=== PATIENT | female | born 1985 | race Caucasian/White ===

== ENCOUNTER 2022-12-02 16:38 | Emergency (ER) | payer SELFPAY ==
[2022-12-02 17:08] VITALS: PULSE 84; RESP 16; TEMP 36.7; O2SAT 98; BMI 25.0
--- NOTE | 2022-12-02 18:09 | ED_ITS ---
HPI - General Adult General: Chief complaint: General Medical Stated complaint: right arm pain, skin irritation, pain all over Time Seen by Provider: 12/02/22 17:14 Source: patient Mode of arrival: ambulatory Limitations: no limitations History of Present Illness: Patient presents to the emergency department today accompanied by another male who is also here for similar symptoms of concerns for parasitic infestation of the skin. Patient states that she has had bugs coming out of her skin, mouth, nose, ears, eyes, and fecal matter now for months. Patient presents to the ER today with multiple specimens which states came from her skin in her mouth. Many of these are adhered to tape and, there are some in tissues and paper towels collected in a [employer] sack. Patient also states she has gotten cocoon's from the skin. Patient reports she is originally from [facility]. She has been traveling back and forth from [place] to [place] recently and when I asked if she was planning on moving back to [place] with her family, she states she needed to get her infestation under control first. Patient reports she deals with her feet swelling and reports she has been seen in the past for both her feet swelling and this infestation but the doctor did not seem to care. She states she was treated with some medicine for her skin and was given 3 days of pills for her feet swelling. Patient has not been running fevers. She has not otherwise been ill. Review of Systems General: Reports: 10 or more systems reviewed and unremarkable except in HPI and below Physical Exam Const: COMMON NORMALS: no acute distress, patient oriented x3 and alert HENMT: COMMON NORMALS: normocephalic, atraumatic and hearing grossly normal bilaterally HEAD & SCALP: normocephalic and atraumatic Eye: COMMON NORMALS: Equal, round and reactive pupils present, EOMs intact bilaterally and conjunctivae normal CONJUNCTIVA: Yes conjunctivae normal PUPIL: Yes Equal, round and reactive pupils present Neck/C-Spine: COMMON NORMALS: full ROM and no JVD Lymph: LYMPHATIC: no lymphadenopathy noted Resp: COMMON NORMALS: normal respiratory effort, No retractions and No use of accessory muscles Cardio: COMMON NORMALS: no JVD and regular rate RATE: regular rate Neuro: COMMON NORMALS: patient oriented x3 SENSORIUM/ORIENTATION: Yes alert Psych: COMMON NORMALS: mental status grossly normal, Normal thought process present, cooperative and normal affect THOUGHT PROCESS: Normal thought process present Skin: NARRATIVE SKIN EXAM: Patient is covered in small, open sores primarily affecting the chest, low abdomen, and extremities. No signs of active bleeding but, many of these have a purulent covering and slight erythema of the skin surrounding them. She reports seeing bugs actively in these wounds though I cannot appreciate them today. Course Vital Signs: Vital signs: Vital Signs Temperature 98.0 F 12/02/22 17:08 Pulse Rate 84 12/02/22 17:08 Respiratory Rate 16 12/02/22 17:08 Pulse Oximetry 98 12/02/22 17:08 Oxygen Delivery Me thod Room Air 12/02/22 17:08 MDM - General Adult Medical Decision Making Unfortunately, I believe patient's examination today is consistent with a delusion of parasitosis with concerns it is due to secondary to drug use. Specimens patient brought in are not appreciated as parasitic in any way. Many of them appear to be mucous or pieces of skin which have been scratched off. Either way, patient needs to be treated for cellulitis and we did start treatment with Keflex. Patient also complains of the itching so I prescribed hydroxyzine. Patient's wounds need to be continued to be monitored and as she does not have any primary care here in the area I did request follow-up to continue monitoring for improvement of skin infection. Differential Diagnosis DDx: Scabies, insect bites, cellulitis, abscess, delusions of parasitosis, fleas , chiggers Discharge Plan Discharge Patient Disposition: Home Clinical Impression: Cellulitis Condition: Stable Prescriptions: New cephalexin 500 mg capsule 500 mg PO QID 7 Days Qty: 28 0RF hydroxyzine HCl 25 mg tablet 25 mg PO Q6H PRN (Reason: itching) 10 Days Qty: 40 0RF Discharge Orders: Discharge ED (Routine); Ordered 12/02/22 Ordered By: Sarita Lau Discharge Diet: Usual diet Discharge Activity: Increase activity as tolerated Patient Instructions: Cellulitis Activity Restrictions/Additional Instructions: I have provided you medication to help with the various skin complaints you came to the emergency department with today. Is much as possible, please avoid irritating or opening your skin, scratching or digging at sites in your skin which can cause worsening wounds or new wounds. I have requested a follow-up appointment to discuss several issues-not just your skin concerns but also, recurrent issues of swelling on your feet. That way, if you were able to get everything cleared up, you can choose to safely move back home if you want. Coding Level of Care Code ED Medical Fee Clerk for Trino Camacho
--- NOTE | 2022-12-05 12:39 | DCPLANNER ---
fleet dispatch manager had message to speak with patient about getting established with a primary care physician. fleet dispatch manager called phone number [phone], unable to speak with anyone or leave a voicemail for patient at this time.
== END 2022-12-02 17:55 | disposition home or self-care (01) ==
PROVIDERS: Emergency Provider Physician Assistant
DX: L03.90 Cellulitis, unspecified (principal)
CPT/HCPCS: 99283

== ENCOUNTER 2022-12-08 04:59 | Emergency (ER) | payer SELFPAY ==
[2022-12-08 05:07] VITALS: PULSE 91; RESP 16; O2SAT 97
--- NOTE | 2022-12-08 05:17 | ED_ITS ---
HPI - Skin/Abscess/Foreign Bdy General: Chief complaint: Skin/Abscess/Foreign Body Stated complaint: Bugs In skins Time Seen by Provider: 12/08/22 05:00 Source: patient Mode of arrival: ambulatory Limitations: no limitations History of Present Illness: 37-year-old female states that she please there is bugs under her skin in her hands and arms she states she says they are in visible knee, however skin she states she can see him with her light of her phone when she signs it through her fingers at times. She states that she does have a slight pruritus she does have some rash wounds to her hands and arms she has been picking at these as well. She had been placed on Keflex denies any improvement Associated symptoms: Deny chills, fever(s), nausea or vomiting Review of Systems Const: Denies: fever(s) or chills Card: Denies: chest pain Resp: Denies: dyspnea GI: Denies: abdominal pain, nausea, vomiting or diarrhea Musc: Denies: neck pain or back pain Skin/Breast: Reports: rash Physical Exam Const: COMMON NORMALS: no acute distress and patient oriented x3 HENMT: COMMON NORMALS: normocephalic HEAD & SCALP: normocephalic Eye: COMMON NORMALS: conjunctivae normal CONJUNCTIVA: Yes conjunctivae normal Chest: COMMONS NORMALS: normal inspection of the chest Resp: COMMON NORMALS: normal respiratory effort Extremity: COMMON NORMALS: full ROM Neuro: COMMON NORMALS: patient oriented x3 Psych: COMMON NORMALS: mental status grossly normal Skin: NARRATIVE SKIN EXAM: Peers to have bug bites could be scabies to hands and arms patient also been picking at her arms Course Vital Signs: Vital signs: Vital Signs Pulse Rate 91 12/08/22 05:07 Respiratory Rate 16 12/08/22 05:07 Pulse Oximetry 97 12/08/22 05:07 MDM - Skin/Abscess/Foreign Bdy Medicial Decision Making Patient presents here with rash wounds to upper arms this could be scabies patient believes its botfly's or insects or invisible insects in the arms I did inform him we will put him on permethrin and get him follow-up with dermatology no signs of cellulitis Discharge Plan Discharge Patient Disposition: Home Clinical Impression: Rash Condition: Stable Prescriptions: New Elimite 5 % cream 1 applic topical Q14D Qty: 60 0RF Rx Instructions: apply second treatment 14 days after first treatment if live lice remain No Action cephalexin 500 mg capsule 500 mg PO QID 7 Days Qty: 28 0RF hydroxyzine HCl 25 mg tablet 25 mg PO Q6H PRN (Reason: itching) 10 Days Qty: 40 0RF Discharge Orders: Discharge ED (Routine); Ordered 12/08/22 Ordered By: Laury Martinez Referrals: Catrina Boo DO [Physician] - 1-3 days Discharge Diet: Advance as tolerated Discharge Activity: Resume usual activity Patient Instructions: Acute Rash (ED) Coding Level of Care Code ED Machine Setter And Repairer for Trino Camacho
[2022-12-08 05:26] VITALS: BP 149/88; PULSE 91; RESP 16; O2SAT 97
== END 2022-12-08 05:28 | disposition home or self-care (01) ==
PROVIDERS: Emergency Provider Emergency Medicine
DX: R21 Rash and other nonspecific skin eruption (principal)
CPT/HCPCS: 99283

== ENCOUNTER 2024-06-29 15:51 | Emergency (ER) | payer SELFPAY ==
[2024-06-29 15:51] VITALS: BP 149/70; PULSE 86; RESP 16; TEMP 36.6; O2SAT 98; BMI 26.6
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
[2024-06-29 16:37] VITALS: BP 137/76; PULSE 75; O2SAT 99
[2024-06-29] MEDS: HYDROcodone-acetaminophen 5-325 mg Tablet 1 TAB PO (16:38)
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
[2024-06-29 17:10] VITALS: BP 138/87; PULSE 78; O2SAT 98
== END 2024-06-29 17:10 | disposition home or self-care (01) ==
PROVIDERS: Emergency Provider Emergency Medicine
DX: M25.511 Pain in right shoulder (principal); S09.8XXA Other specified injuries of head, initial encounter; Y04.8XXA Assault by other bodily force, initial encounter
CPT/HCPCS: 70450; 73030; 73552; 99284; J9999